=== PATIENT | male | born 1975 | race Caucasian/White ===

== ENCOUNTER 2017-02-05 07:46 | Emergency (ER) | payer BC ==
[2017-02-05 07:52] VITALS: BP 121/79
[2017-02-05] MEDS ORDERED: Acetaminophen TAB* 325 MG PO ONE (08:58)
--- NOTE | 2017-02-05 09:06 | UC ---
General HPI - HPI Summary HPI Summary: He has had chills, myalgias, aches since yesterday. He has had subjective fever and chills. He has had hematuria and dysuria. No flank or abd pain. He has no medical conditions and no prior uti. He wonders if this could be the flu. - History of Current Complaint Chief Complaint: UCGeneralIllness Stated Complaint: FEVER/ALVAREZ/CHILLS Time Seen by Provider: 02/05/17 08:11 Hx Obtained From: Patient Onset/Duration: Gradual Onset, Lasting Hours Timing: Constant Onset Severity: Moderate Current Severity: Moderate Associated Signs & Symptoms: Positive: Fever. Negative: Back Pain, Confusion, Cough, Chest Pain, Dizziness, Diarrhea, Dysuria, Decreased Oral Intake, Diaphoresis, Edema, Hematemesis, Hemoptysis, Nausea, Vomiting - Allergy/Home Medications Allergies/Adverse Reactions: Allergies Allergy/AdvReac Type Severity Reaction Status Date / Time No Known Allergies Allergy Verified 02/05/17 07:52 PMH/Surg Hx/FS Hx/Imm Hx Previously Healthy: Yes - Surgical History Surgical History: Yes Surgery Procedure, Year, and Place: vasectomy - Family History Known Family History: Positive: Other - NO related fh. One child at home 4yo that is generally healthy. - Social History Alcohol Use: Occasionally Substance Use Type: None Smoking Status (MU): Never Smoked Tobacco Review of Systems Constitutional: Chills Genitourinary: Hematuria All Other Systems Reviewed And Are Negative: Yes Physical Exam Triage Information Reviewed: Yes Appearance: Well-Appearing, No Pain Distress, Well-Nourished Vital Signs: Initial Vital Signs Temp 99 F 02/05/17 07:48 Pulse 105 02/05/17 07:48 Resp 16 02/05/17 07:48 BP 121/79 02/05/17 07:48 Pulse Ox 99 02/05/17 07:48 Vital Signs Reviewed: Yes Eyes: Positive: Conjunctiva Clear ENT: Positive: Normal ENT inspection, Hearing grossly normal, Pharynx normal, TMs normal. Negative: Pharyngeal erythema, TM bulging, TM dull, TM red, Tonsillar swelling, Tonsillar exudate, Trismus Neck: Positive: Supple, Nontender, No Lymphadenopathy. Negative: Nuchal Rigidity Respiratory: Positive: Lungs clear, Normal breath sounds, No respiratory distress, No accessory muscle use, Respiratory distress. Negative: Decreased breath sounds, Accessory muscle use, Crackles, Rhonchi, Stridor, Wheezing Cardiovascular: Positive: RRR, No Murmur, Pulses Normal, Brisk Capillary Refill Abdomen Description: Positive: Nontender, No Organomegaly Musculoskeletal: Positive: Strength Intact, ROM Intact, No Edema Neurological: Positive: Alert, Muscle Tone Normal. Negative: Fatigued Psychological: Positive: Age Appropriate Behavior Skin: Negative: rashes Course/Dx - Course Course Of Treatment: chills, myalgias and possible uti symptoms. No signs of pyelonephritis or stone or obstruction. We will check flu and if neg, then treat with rocephin and for uti. he was told that f/u with urologist will be necessary as UTi in an otherwise healthy male is very rare and needs further work up. He agreed. - Differential Dx - Multi-Symptom Provider Diagnoses: hematuria. uti Discharge - Discharge Plan Condition: Good Disposition: HOME Prescriptions: Cephalexin CAP* [Keflex CAP*] 500 mg PO BID #20 cap Patient Education Materials: Urinary Tract Infection in Men (ED) Forms: *Work Release Referrals: No Primary Care Phys,NOPCP [Medical Doctor] - Steve Brumfield MD [Medical Doctor] -
[2017-02-05] MEDS ORDERED: cefTRIAXone VIAL(*) 1,000 MG VIAL IM ONE (09:23)
[2017-02-05] MEDS ORDERED: Lidocaine 1% MPF* 2 ML VIAL INJ ONE (09:24)
--- NOTE | 2017-02-07 07:24 | UC ---
Progress - Progress Note Progress Note: no change
== END 2017-02-05 09:53 | disposition home or self-care (01) ==
LOC: UCCORT 07:46
DX: R31.9 Hematuria, unspecified (principal); N39.0 Urinary tract infection, site not specified
CPT/HCPCS: 81003; 87077; 87086; 87186; 87502; 96372; 99202; A9270-GY; G0463; J0696